=== PATIENT | female | born 1985 | race Caucasian/White ===

== ENCOUNTER 2019-03-29 10:21 | Emergency (ER) | payer OTHER ==
[~2019-03-29] VITALS: Ht 165.1 cm; Wt 68.0 kg
[2019-03-29 10:42] LABS: URINE BILIRUBIN NEGATIVE (Negative); URINE BLOOD 1+ (Negative); URINE CLARITY CLEAR; URINE COLOR YELLOW; URINE GLUCOSE-RANDOM NEGATIVE (Negative); URINE KETONES TRACE (Negative); URINE LEUKOCYTES NEGATIVE (Negative); URINE NITRITE NEGATIVE (Negative); URINE PROTEIN TRACE (Negative); URINE UROBILINOGEN 0.2 E.U./dl (0.2-1.0)
[2019-03-29] MEDS ORDERED: FLEXERIL PO (10:42)
[2019-03-29] MEDS ORDERED: MACROBID 100 M100 MG PO (10:42)
[2019-03-29 10:48] LABS: ABSOLUTE EOSINOPHILS 0.1 thou/uL (0.0-0.7); ABSOLUTE LYMPHOCYTES 1.5 thou/uL (0.8-5.3); ABSOLUTE MONOCYTES 0.9 thou/uL (0.0-1.2); ABSOLUTE NEUTROPHILS 8.9 thou/uL (1.6-8.1); BASOPHILS 0.3 %; HEMATOCRIT 39.2 % (37.0-47.0); HEMOGLOBIN 13.3 gm/dL (12.0-15.0); LYMPHOCYTES 12.9 %; MCH 32.1 pg (26.0-34.0); MCV 94.4 fL (80.0-100.0); MONOCYTES 8.1 %; MPV 8.4 fl. (7.2-11.1); NUCLEATED RBCS 0 /100WBC; PLATELET COUNT* 279 thou/uL (150-400); POLYS 77.7 %; RBC 4.15 mil/uL (4.20-5.00); RDW-CV 12.7 % (10.5-14.5); WBC 11.4 thou/uL (4.0-11.0)
[2019-03-29 10:50] LABS: CASTS None Seen /LPF (None Seen); CRYSTALS None Seen /LPF (None Seen); MUCUS 4-6 Moderate strn/LPF (None Seen); SQUAMOUS >10 Many /LPF (0-3); URINE RBC 3-10 Few /HPF (0-2); URINE WBC 0-5 Rare /HPF (0-5)
[2019-03-29 10:57] LABS: CALCIUM 9.2 mg/dL (8.5-10.1); CREATININE 0.8 mg/dL (0.6-1.3); POTASSIUM 3.3 mmol/L (3.5-5.1)
[2019-03-29 11:02] LABS: ALBUMIN 3.6 g/dL (3.4-5.0); TOTAL BILIRUBIN 0.6 mg/dL (<0.1-1.0)
[2019-03-29 11:04] LABS: INFLUENZA A ANTIGEN Negative (Negative); INFLUENZA B ANTIGEN Negative (Negative)
[2019-03-29] MEDS ORDERED: BENTYL 10 MG CA10 MG PO (12:50)
[2019-03-29] MEDS ORDERED: KEFLEX500 M2 PO (12:50)
[2019-03-29] MEDS ORDERED: PYRIDIUM100 M1 PO (12:50)
[2019-03-29 13:33] VITALS: BP 98/57
== END 2019-03-29 13:34 | disposition home or self-care (01) ==
LOC: M.ERS 10:21
PROVIDERS: Physician Assistant
DX: N39.0 Urinary tract infection, site not specified (principal)